=== PATIENT | male | born 1975 | race Caucasian/White ===

== ENCOUNTER 2016-08-04 15:18 | Inpatient (IN) ==
[2016-08-04] MEDS ORDERED: *HR* HYDROmorphone (PF) 1 MG/ML SYRINGE IVP ONE ×3 (15:27→17:13)
[2016-08-04] MEDS ORDERED: Ondansetron 4 MG/2 ML VIAL IVP ONE (15:28)
--- NOTE | 2016-08-04 15:38 | Emergency Department Note ---
Disposition Clinical Impression: Open fracture Fracture of toe Qualifiers: Encounter type: initial encounter Toe: unspecified toe Fracture type: open Fracture alignment: displaced Laterality: left Qualified Code(s): S92.912B - Unspecified fracture of left toe(s), initial encounter for open fracture Traumatic amputation toe Qualifiers: Encounter type: initial encounter Laterality: left Qualified Code(s): S98.132A - Complete traumatic amputation of one left lesser toe, initial encounter Disposition: Admitted As Inpatient Condition: Good Time of Disposition: 16:45 General Adult HPI - General Chief complaint: ED Extremity Injury, Lower Stated complaint: amputated toe Time Seen by Provider: 08/04/16 15:27 Source: patient, EMS Limitations: no limitations Nursing Notes Reviewed: Yes Vital Signs Reviewed: Yes - History of Present Illness HPI Narrative: Patient was mowing the grass and slipped. The privacy specialist came back and cut through his tennis shoe of his left foot. This indicated his second digit of his left foot. Also lacerated his great toe on his left foot. EMS was called they placed the toe in cold saline wrapped in 4 x 4's. Patient complains of pain to this area. There is no radiation. Bleeding is controlled. Pain Scale: 10 - Related Data Home Medications Medication Instructions Recorded Confirmed ALPRAZolam [Xanax 0.5 MG Tablet] 0.5 mg PO QAM 06/30/15 08/04/16 Amitriptyline [Elavil] 75 mg PO HS 08/04/16 08/04/16 Dextroamphetamine/Amphetamine 10 mg PO 0900,1200 08/04/16 08/04/16 [Dextroamp-Amphetamin 10 mg Tab] Divalproex (12 HR) [Depakote (12 250 mg PO BID 08/04/16 08/04/16 HR)] Melatonin 3 mg PO HS PRN 08/04/16 08/04/16 Omeprazole [PriLOSEC] 20 mg PO BIDAC 08/04/16 08/04/16 Oxycodone HCl/Acetaminophen 1 each PO Q8H PRN 08/04/16 08/04/16 [Percocet 10-325 mg Tablet] SUMAtriptan Succinate [Imitrex] 100 mg PO DAILY PRN 08/04/16 08/04/16 levETIRAcetam [Levetiracetam] 1,000 mg PO BID 08/04/16 08/04/16 Allergies Allergy/AdvReac Type Severity Reaction Status Date / Time Penicillins [PCN] Allergy Rash Verified 03/25/16 17:54 venom-honey bee Allergy See Verified 03/25/16 17:54 [bee venom (honey bee)] Comments All systems ED: reviewed and negative except as stated. Constitutional: Denies: fever, chills ENT ED: Denies: congestion Cardiovascular: Denies: chest pain, palpitations, syncope Respiratory: Denies: cough, dyspnea Gastrointestinal: Denies: abdominal pain, nausea, vomiting Genitourinary: Denies: urgency, dysuria, frequency Musculoskeletal: Reports: other (left foot second tow amputation, laceration to great toe on left). Denies: back pain, neck pain Integumentary: Denies: rash, abrasion Neurological: Denies: headache, weakness Past Medical History - Past Medical History Medical history: Reports: migraine, seizures, other Surgical history: Reports: other ("brain surgery") Psychiatric history: Reports: no psych history - Social History Smoking Status: Current every day smoker Smokeless Tobacco Status: No Alcohol use: Reports: rarely Drug use: Reports: none Physical Exam - General Limitations: no limitations General appearance: alert, in no apparent distress - Head Head exam: atraumatic, normocephalic - Eye Eye exam: Present: normal appearance, PERRL, EOMI - ENT ENT exam: normal exam, normal oropharynx, mucous membranes moist - Neck Neck exam: Present: normal inspection, full ROM - Chest Chest inspection: Present: normal inspection, symmetric chest wall rise - Respiratory Respiratory exam: Present: normal lung sounds bilaterally. Absent: respiratory distress - Cardiovascular Cardiovascular exam: Present: regular rate, normal rhythm, normal heart sounds - Abdominal Exam Abdominal exam: Present: soft, Non-Tender, normal bowel sounds - Expanded Upper Extremity Exam Shoulder exam: Present: normal inspection, full ROM Arm exam: Present: normal inspection, full ROM Elbow exam: Present: normal inspection, full ROM Forearm/Wrist exam: Present: normal inspection, full ROM Hand exam: Present: normal inspection, full ROM Vascular exam: Normal: capillary refill, radial pulse - Expanded Lower Extremity Exam Hip/Pelvis exam: Present: normal inspection, full ROM Upper leg exam: Present: normal inspection, full ROM Knee exam: Present: normal inspection, full ROM Lower leg exam: Present: normal inspection, full ROM Ankle exam: Present: normal inspection, full ROM Foot/toe exam: Present: laceration, amputation 1 - amputated 2 - laceration Neurovascular/Tendon exam: Absent: motor deficit, sensory deficit, tendon deficit - Back Exam Back exam: Present: normal inspection, full ROM. Absent: tenderness, CVA tenderness (R), CVA tenderness (L) - Neurological Exam Neurological exam: Present: alert, oriented X3 - Psychiatric Psychiatric exam: Present: normal affect, normal mood - Skin Skin exam: Present: warm, dry, intact, normal color. Absent: rash, cyanosis Course Course Narrative: Patient presenting to the emergency department with EMS. Patient was mowing the grass around 1450 today whenever he ran over his left foot. He had on tennis shoes. He slipped and the lumbar came back and ran over his left foot. This amputated the second digit on his left foot. He also cut into the first digit. He then called EMS. The toe is brought in full saline wrapped in a 4 x 4. We placed it on ice. There is bone exposed and the bleeding is controlled. There is no bone exposed to his first digit however there is a laceration . Both on the left foot. He is not up-to-date on his tetanus shot. We have spoken to Dr. Ramirez and Dr. Ramirez has seen the patient. His been offered for the patient to be transferred to [place] for possible reimplantation. The patient has chosen to stay at this facility for debridement. We will place him on Ancef as well as Cipro for Pseudomonas coverage. We will manage patient' s pain while he is here. We are cleaning the wound and covering with a moist dressing. We will admit patient to the hospital. His last meal was around noon today. - Consultations Consultation #1: Spoke with Dr. Ramirez on the phone. He came to bedside to speak with patient. Options for the patient are to have debridement surgery enclosure here or possible transfer to [place] or [facility] for possible reimplantation. Time: 15:35 Consultation #2: Dr Sher accepted Pt in stable condition. Time: 16:22 Vital Signs Temperature 98.4 F 08/04/16 15:20 Pulse Rate 109 08/04/16 15:20 Respiratory Rate 18 08/04/16 15:20 Blood Pressure 141/102 08/04/16 15:20 O2 Sat by Pulse Oximetry 97 08/04/16 15:20 Temperature 98.4 F 08/04/16 18:01 Pulse Rate 92 08/04/16 18:01 Respiratory Rate 14 08/04/16 18:01 Blood Pressure 129/75 08/04/16 18:01 O2 Sat by Pulse Oximetry 99 08/04/16 18:01 Oxygen Delivery Oxygen Delivery Room Air Medical Decision Making - Lab Data Result diagrams: 08/04/16 16:28 08/04/16 16:28 Lab Results 08/04/16 08/04/16 08/04/16 Range/Units 16:28 16:28 16:28 WBC (4.3-11.1) K/mcL RBC (4.19-5.50) M/mcL Hgb (12.9-16.9) g/dL Hct (37.5-50.1) % MCV (83.0-100.0) fL MCH (28.0-33.3) pg MCHC (31.6-35.5) g/dL RDW (11.5-14.5) % Plt Count (140-400) K/mcL MPV (9.4-12.4) fL Immature Gran % (0-4) % Seg Neutrophils % % Lymphocytes % % Monocytes % % Eosinophils % % Basophils % % Neutrophils # (1.6-8.9) K/mcL Lymphocytes # (0.6-4.6) K/mcL Monocytes # (0.0-1.3) K/mcL Eosinophils # (0.0-0.6) K/mcL Basophils # (0.0-0.2) K/mcL PT 13.0 H (9.4-12.1) Seconds INR 1.2 Sodium 139 (136-145) mEq/L Potassium 4.7 H (3.5-4.5) mEq/L Chloride 105 (98-109) mEq/L Carbon Dioxide 25 (19-29) mEq/L BUN 11 (8-26) mg/dL Creatinine 1.02 (0.72-1.25) mg/dL Est GFR ( Amer) > 60 (> 60) Est GFR (Non-Af Amer) > 60 (> 60) BUN/Creatinine Ratio 11 (6-26) Glucose 93 (70-99) mg/dL Calculated Osmolality 287 (280-300) Calcium 9.3 (8.6-10.8) mg/dL Blood Type A POSITIVE Antibody Screen NEGATIVE 08/04/16 Range/Units 16:28 WBC 16.3 H (4.3-11.1) K/mcL RBC 5.01 (4.19-5.50) M/mcL Hgb 15.2 (12.9-16.9) g/dL Hct 44.0 (37.5-50.1) % MCV 87.8 (83.0-100.0) fL MCH 30.3 (28.0-33.3) pg MCHC 34.5 (31.6-35.5) g/dL RDW 13.1 (11.5-14.5) % Plt Count 282 (140-400) K/mcL MPV 9.9 (9.4-12.4) fL Immature Gran % 0.4 (0-4) % Seg Neutrophils % 69.8 % Lymphocytes % 20.2 % Monocytes % 7.0 % Eosinophils % 2.0 % Basophils % 0.6 % Neutrophils # 11.4 H (1.6-8.9) K/mcL Lymphocytes # 3.3 (0.6-4.6) K/mcL Monocytes # 1.1 (0.0-1.3) K/mcL Eosinophils # 0.3 (0.0-0.6) K/mcL Basophils # 0.1 (0.0-0.2) K/mcL PT (9.4-12.1) Seconds INR Sodium (136-145) mEq/L Potassium (3.5-4.5) mEq/L Chloride (98-109) mEq/L Carbon Dioxide (19-29) mEq/L BUN (8-26) mg/dL Creatinine (0.72-1.25) mg/dL Est GFR ( Amer) (> 60) Est GFR (Non-Af Amer) (> 60) BUN/Creatinine Ratio (6-26) Glucose (70-99) mg/dL Calculated Osmolality (280-300) Calcium (8.6-10.8) mg/dL Blood Type Antibody Screen Attestation Statement - Attestation Attestation: I, Kwaku Dumont, examined this patient and my medical decision-making was reviewed with the SLIP MAKER/PA/Advanced Practice Nurse/Resident Physician. I agree with the documented findings, disposition and treatment plan as described except to the extent set forth below. 40-year-old male presents with amputation of the left second toe. Patient was mowing the lawn when he slipped and fell backwards. The lawnmower cut into the patient's shoe and foot. Amputation of the second toe of the left foot occurred at the interphalangeal joint. Today she was counseled after the patient's initial arrival who recommended either debridement of the toe versus transfer to [facility] for possible reattachment. Risks and benefits were discussed thoroughly with the patient. Patient chose to remain at [facility] to have debridement of the amputated toe with closure. Podiatry evaluated the patient at bedside. Patient will be admitted to the hospital for further care and evaluation.
[2016-08-04] MEDS ORDERED: Tdap (Boostrix) Vaccine 0.5 ML SYRINGE IM ONE (15:40)
[2016-08-04] MEDS ORDERED: ceFAZolin 1,000 MG in D5% in Water (Mini-Bag+) 100 ML IVPB ONE (15:54)
[2016-08-04 16:37] LABS: Basophils # 0.1 K/mcL (0.0-0.2); Basophils % 0.6 %; Eosinophils # 0.3 K/mcL (0.0-0.6); Hemoglobin 15.2 g/dL (12.9-16.9); Immature Granulocytes % 0.4 % (0-4); Lymphocytes # 3.3 K/mcL (0.6-4.6); Lymphocytes % 20.2 %; Mean Corpuscular HGB Conc 34.5 g/dL (31.6-35.5); Mean Corpuscular Hemoglobin 30.3 pg (28.0-33.3); Mean Corpuscular Volume 87.8 fL (83.0-100.0); Mean Platelet Volume 9.9 fL (9.4-12.4); Monocytes # 1.1 K/mcL (0.0-1.3); Neutrophils # 11.4 K/mcL (1.6-8.9); Platelet Count 282 K/mcL (140-400); Red Blood Count 5.01 M/mcL (4.19-5.50); Red Cell Distribution Width 13.1 % (11.5-14.5); Segmented Neutrophils % 69.8 %
[2016-08-04 16:42] LABS: INR 1.2
[2016-08-04 16:51] LABS: BUN/Creatinine Ratio 11 (6-26); Blood Urea Nitrogen 11 mg/dL (8-26); Calcium 9.3 mg/dL (8.6-10.8); Carbon Dioxide 25 mEq/L (19-29); Chloride 105 mEq/L (98-109); Glucose 93 mg/dL (70-99); Osmolality,Calculated 287 (280-300); Potassium 4.7 mEq/L (3.5-4.5); Sodium 139 mEq/L (136-145); eGFR For African Americans > 60 (> 60); eGFR For Non-African Americans > 60 (> 60)
[2016-08-04] MEDS ORDERED: Naloxone 0.4 MG/ML INJ IVP PRN (16:57)
[2016-08-04] MEDS ORDERED: ALPRAZolam 0.5 MG TABLET PO PRN (17:17)
--- NOTE | 2016-08-04 17:21 | Internal Med History&Physical ---
<Lam,Cortney J - Last Filed: 08/04/16 18:15> Date of Encounter: 08/04/16 Time of Encounter: 17:19 Assessment and Plan (1) Traumatic amputation toe Current visit: Yes Status: Acute on day of admission secondary to loan expeditor accident. Left foot x-ray with 2nd digit amputation. Flushed at bedside per Podiatry. Received tetanus in ED. Plan for surgical debridement in am. Cont IV ancef, pain control, NPO after midnight. Dr. Ramirez following Qualifiers: Encounter type: initial encounter Laterality: left Qualified Code(s): S98.132A - Complete traumatic amputation of one left lesser toe, initial encounter (2) Open fracture Current visit: Yes Status: Acute left foot x-ray with 1st digit fracture. Defer management to podiatry. (3) Leukocytosis Current visit: Yes Status: Acute WBC 16K, suspect reactive. CXR non-acute. Cont IV ancef as noted above. UA, blood cx pending Qualifiers: Leukocytosis type: other Qualified Code(s): D72.828 - Other elevated white blood cell count (4) History of brain surgery Current visit: Yes Status: Acute per hx with residual left side facial droop. Cont seizure prophylaxis. (5) Anxiety Current visit: Yes Status: Acute per hx. Sx's controlled with home Klonopin (6) DVT prophylaxis Current visit: Yes Status: Acute SCDs Internal Medicine - H&P: HPI Chief complaint: I cut my toes off mowing grass Admitted From: Home Plans for Post Hospital Care: Home History of present illness: Mr. Recinos is a 40 year old male with PMH previous brain surgeries and anxiety who presented to [facility] on 08/04/2016 after having 2 toes amputated while mowing grass. He was placed in observation status with surgical debridement planned in the morning. Information obtained from chart review and patient report. Patient says he was mowing grass when he tripped and fell. The mower ran over foot. On my exam, he complains of left foot pain, pain is sharp at times, radiates to entire left foot. Nothing makes worse and pain medicine relieves Past Med Surg Social Fam HX - Past Medical History Medical history: migraine, seizures, other Psychiatric history: no psych history - Past Surgical History Surgical History: other ("brain surgery") - Social History Smoking Status: Current every day smoker Smokeless Tobacco Status: No Alcohol use: rarely Drug use: none Internal Medicine - H&P: Meds ALPRAZolam [Xanax 0.5 MG Tablet] 0.5 mg PO QAM 06/30/15 [History] Amitriptyline [Elavil] 75 mg PO HS 08/04/16 [History] Dextroamphetamine/Amphetamine [Dextroamp-Amphetamin 10 mg Tab] 10 mg PO 0900, 1200 08/04/16 [History] Divalproex (12 HR) [Depakote (12 HR)] 250 mg PO BID 08/04/16 [History] Melatonin 3 mg PO HS PRN 08/04/16 [History] Omeprazole [PriLOSEC] 20 mg PO BIDAC 08/04/16 [History] Oxycodone HCl/Acetaminophen [Percocet 10-325 mg Tablet] 1 each PO Q8H PRN [History] SUMAtriptan Succinate [Imitrex] 100 mg PO DAILY PRN 08/04/16 [History] levETIRAcetam [Levetiracetam] 1,000 mg PO BID 08/04/16 [History] Allergies Penicillins [PCN] Allergy (Verified 03/25/16 17:54) Rash venom-honey bee [bee venom (honey bee)] Allergy (Verified 03/25/16 17:54) See Comments "i have swelled up and i think i had a seziure as a kid" All Systems PM: A 10-system review of systems was performed and is negative for pertinent findings except as documented above in the HPI. - Constitutional Constitutional: no chills, no fever(s), no night sweats - EENT Eyes: no change in vision, no discharge, no pain, no photophobia Ears: no ear discharge, no ear pain, no tinnitus Nose, mouth and throat: no dysphagia, no nasal discharge, no neck pain, no sore throat - Cardiovascular Cardiovascular ROS IM: no chest pain, no diaphoresis, no dyspnea, no lightheadedness, no palpitations, no syncope - Respiratory Respiratory: no cough, no dyspnea, no wheezing, no excessive phlegm production - Gastrointestinal Gastrointestinal: no abdominal pain, no diarrhea, no hematemesis, no hematochezia, no melena, no nausea, no vomiting - Musculoskeletal Musculoskeletal ROS IM: no numbness, no tingling - Integumentary Integumentary IM: no rash, no unusual bruising - Neurological Neurological ROS: abnormal speech, no confusion, no convulsions, no focal weakness, no numbness, no tingling, no tremor(s) - Hematologic/Lymphatic Hematologic/Lymphatic: no easy bruising - Constitutional Vitals: Temp Pulse Resp BP Pulse Ox 98.4 F 92 16 130/90 99 08/04/16 15:20 08/04/16 16:58 08/04/16 16:58 08/04/16 16:58 08/04/16 16:58 General appearance: Present: A&O X 3, no acute distress - Head Head exam: Present: atraumatic, normocephalic - Eye Eye exam: Present: PERRL, conjuntiva pink, sclera anicteric Pupils: Present: PERRL - Neck Neck exam general surgery: Present: supple, trachea midline. Absent: lymphadenopathy - Respiratory Respiratory exam: Present: CTAB. Absent: accessory muscle use, rales, rhonchi, wheezes - Cardiovascular Cardiovascular exam: Present: RRR, +S1, +S2. Absent: diastolic murmur, gallop, rubs, systolic murmur - GI/Abdominal GI/Abdominal exam: Present: normal bowel sounds, soft, no peritoneal signs. Absent: distended, tenderness - Extremities Exam Extremities exam: Present: warm, radial pulses palpable and symetrical. Absent : calf tenderness, cyanotic, pedal edema - Neurological Exam Neurological exam: Present: CN II-XII intact, oriented X3, no focal deficits, facial droop, speech deficit. Absent: pronater drift - Skin Skin exam: Present: dry, intact Internal Med - H&P Results - Labs CBC & Chem 7: 08/04/16 16:28 08/04/16 16:28 <Arcadio Sher - Last Filed: 08/04/16 18:25> Date of Encounter: 08/04/16 Time of Encounter: 18:23 Internal Medicine - H&P: HPI History of present illness: Mr. Recinos is a 40 year old male All Systems PM: A 10-system review of systems was performed and is negative for pertinent findings except as documented above in the HPI. - Constitutional Vitals: Temp Pulse Resp BP Pulse Ox 98.4 F 92 14 129/75 99 08/04/16 18:01 08/04/16 18:01 08/04/16 18:01 08/04/16 18:01 08/04/16 18:01 Internal Med - H&P Results - Labs CBC & Chem 7: 08/04/16 16:28 08/04/16 16:28 - Attending Attestation I examined this patient and my medical decision-making was reviewed with the nurse practitioner. I agree with the documented history of present illness, review of systems, past medical, surgical social and family histories and examination findings, disposition and treatment plan as described above except to any changes set forth below. 40-year-old male patient with history of seizures, brain bleed with traumatic amputation of the left second toe and part of left first toe with fracture of the first digit. Evaluated by podiatry and recommended debridement which is planned for tomorrow. Continue patient's home medications. 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 Monitor vital signs. IV antibiotics.
[2016-08-04] MEDS ORDERED: *HR* LORazepam 2 MG/ML VIAL IVP ONE (18:22)
[2016-08-04] MEDS: *HR* OxyCODONE Immed Rel 5 MG TABLET PO PRN (19:16)
[2016-08-04] MEDS: Nicotine 14 MG PATCH.TD24 TD SCH (20:26)
[2016-08-04] MEDS: Divalproex (12 HR) 250 MG TABLET PO SCH (20:27)
[2016-08-04] MEDS: levETIRAcetam 250 MG TABLET PO SCH (20:27)
[2016-08-04 21:05] LABS: Bilirubin,Urine Negative (Negative); Blood,Urine Negative (Negative); Clarity,Urine Clear (Clear); Color,Urine Yellow (Yellow); Glucose,Urine (UA) Normal (Normal); Ketones,Urine Negative (Negative); Leukocyte Esterase,Urine Negative (Negative); Nitrite,Urine Negative (Negative); PH,Urine 6.5 pH Units (5.0-8.0); Protein,Urine Negative (Neg-Trace); Specific Gravity,Urine 1.014 (1.010-1.025); Urobilinogen,Urine Normal (Normal)
[2016-08-04] MEDS: *HR* HYDROmorphone (PF) 1 MG/ML SYRINGE IVP PRN (22:18)
[2016-08-04] MEDS: ceFAZolin 1,000 MG in D5% in Water (Mini-Bag+) 100 ML IVPB SCH (23:46)
[2016-08-05] MEDS ORDERED: 0.9 % Sodium Chloride 1,000 ML IVC SCH (00:01)
[2016-08-05] MEDS ORDERED: Melatonin 3 MG TABLET PO ONE ×2 (00:44→20:33)
[2016-08-05] MEDS: *HR* HYDROmorphone (PF) 1 MG/ML SYRINGE IVP PRN ×4 (02:51→21:32)
[2016-08-05 03:37] LABS: Basophils # 0.1 K/mcL (0.0-0.2); Basophils % 0.6 %; Eosinophils # 0.6 K/mcL (0.0-0.6); Hemoglobin 14.4 g/dL (12.9-16.9); Immature Granulocytes % 0.3 % (0-4); Lymphocytes # 4.2 K/mcL (0.6-4.6); Lymphocytes % 28.9 %; Mean Corpuscular HGB Conc 35.1 g/dL (31.6-35.5); Mean Corpuscular Hemoglobin 30.7 pg (28.0-33.3); Mean Corpuscular Volume 87.4 fL (83.0-100.0); Mean Platelet Volume 9.7 fL (9.4-12.4); Monocytes # 1.5 K/mcL (0.0-1.3); Monocytes % 10.5 %; Platelet Count 280 K/mcL (140-400); Red Blood Count 4.69 M/mcL (4.19-5.50); Segmented Neutrophils % 55.7 %
[2016-08-05 03:53] LABS: Alanine Aminotransferase 16 Units/L (0-55); Albumin 3.3 g/dL (3.5-5.0); Albumin/Globulin Ratio 0.8 (1.1-2.2); Alkaline Phosphatase 41 Units/L (38-126); Aspartate Amino Transferase 16 Units/L (5-34); BUN/Creatinine Ratio 11 (6-26); Bilirubin,Total 0.2 mg/dL (0.2-1.2); Blood Urea Nitrogen 10 mg/dL (8-26); Calcium 8.7 mg/dL (8.6-10.8); Carbon Dioxide 24 mEq/L (19-29); Chloride 104 mEq/L (98-109); Globulin 3.9 g/dL (2.4-3.5); Glucose 103 mg/dL (70-99); Osmolality,Calculated 287 (280-300); Sodium 139 mEq/L (136-145); Total Protein 7.2 g/dL (6.0-8.3); eGFR For African Americans > 60 (> 60); eGFR For Non-African Americans > 60 (> 60)
[2016-08-05] MEDS: *HR* OxyCODONE Immed Rel 5 MG TABLET PO PRN ×3 (04:36→20:08)
[2016-08-05] MEDS: Nicotine 14 MG PATCH.TD24 TD SCH ×2 (07:33→17:54)
[2016-08-05] MEDS: Divalproex (12 HR) 250 MG TABLET PO SCH ×2 (07:59→20:09)
[2016-08-05] MEDS: ceFAZolin 1,000 MG in D5% in Water (Mini-Bag+) 100 ML IVPB SCH ×2 (08:00→17:21)
[2016-08-05] MEDS: levETIRAcetam 250 MG TABLET PO SCH ×2 (08:00→20:09)
--- NOTE | 2016-08-05 08:08 | Anesthesia Evaluation PreOp ---
Date of Encounter: 08/05/16 Time of Encounter: 08:05 - Past History Planned Operation: Amputation Left 2nd Toe Cardiac History: Denies any Significant Hx Pulmonary History: Smoker GUEST SERVICES AGENT History: Seizures, Other (H/O traumatic brain injury, migraine VIEYRA's) Other Medical History: Other (PTSD) Anesthesia History: No Prior Anesthetic Complications, Past Anesthesia Alcohol Use: rarely Drug use: none Medications and Allergies ALPRAZolam [Xanax 0.5 MG Tablet] 0.5 mg PO QAM 06/30/15 [History] Amitriptyline [Elavil] 75 mg PO HS 08/04/16 [History] Dextroamphetamine/Amphetamine [Dextroamp-Amphetamin 10 mg Tab] 10 mg PO 0900, 1200 08/04/16 [History] Divalproex (12 HR) [Depakote (12 HR)] 250 mg PO BID 08/04/16 [History] Melatonin 3 mg PO HS PRN 08/04/16 [History] Omeprazole [PriLOSEC] 20 mg PO BIDAC 08/04/16 [History] Oxycodone HCl/Acetaminophen [Percocet 10-325 mg Tablet] 1 each PO Q8H PRN [History] SUMAtriptan Succinate [Imitrex] 100 mg PO DAILY PRN 08/04/16 [History] levETIRAcetam [Levetiracetam] 1,000 mg PO BID 08/04/16 [History] Allergies Penicillins [PCN] Allergy (Verified 03/25/16 17:54) Rash venom-honey bee [bee venom (honey bee)] Allergy (Verified 03/25/16 17:54) See Comments "i have swelled up and i think i had a seziure as a kid" - Meds/Allergy Pre-op Review Medications Reviewed: Yes Allergies Reviewed: Yes Beta Blockers on Current Med List: No Anesthesia Results - Labs 08/05/16 03:24 08/05/16 03:24 - Imaging EKG: report reviewed (07/03/2015 ST) Anesthesia Exam Vital Signs/O2 Sat, Most Current Temp Pulse Resp BP Pulse Ox 98.5 F 81 18 117/68 98 08/05/16 07:12 08/05/16 07:12 08/05/16 07:12 08/05/16 07:12 08/05/16 07:12 Height: 5'10'' Weight: 160 lbs NPO (# of Hours): 8 Pain Scale: 0 Pain Scale Used: Numeric (1 - 10) - HEENT Pupil (Motor): EOMI Mallampati: II Teeth: Edentulous Oral Opening: Greater than 3 - GUEST SERVICES AGENT LOC: Oriented GUEST SERVICES AGENT Motor: Normal LUE, Normal LLE, Normal Face, Deficit RUE, Deficit RLE GUEST SERVICES AGENT Sensory: Normal: RUE, LUE, RLE, LLE, Face - Cardiac Rhythm: Regular Murmur: None - Pulmonary Breath Sounds: bilateral Clear Respiratory Effort: Symmetrical Anesthesia Assess/Plan ASA Score: 3 Modified Manuela Scale for Level of Consciousness: Cooperative, oriented, and tranquil Anesthetic Plan: MAC Monitoring Plan: Standard Monitors
[2016-08-05] MEDS ORDERED: Propofol 500 MG/50 ML INFUS..BTL ONE (08:26)
[2016-08-05] MEDS ORDERED: Lidocaine -MPF 2% 2 ML VIAL ONE (08:27)
[2016-08-05] MEDS ORDERED: *HR* Midazolam HCl 2 MG/2 ML VIAL ONE (08:48)
[2016-08-05] MEDS ORDERED: *HR* FentaNYL (PF) 100 MCG/2 ML VIAL ONE (08:48)
[2016-08-05] MEDS ORDERED: Lacri-Lube 3.5 GM TUBE ONE (09:09)
[2016-08-05] MEDS ORDERED: ALPRAZolam 0.5 MG TABLET PO PRN (10:27)
[2016-08-05] MEDS ORDERED: Naloxone 0.4 MG/ML INJ IVP PRN (10:27)
[2016-08-05] MEDS ORDERED: SUMAtriptan succinate 50 MG TABLET PO PRN (10:27)
[2016-08-05] MEDS: (Dextroamphetamine/Amphetamine [Dextroamp-Amphetamin PO SCH (12:21)
[2016-08-05] MEDS ORDERED: Nitroglycerin 0.4 MG TAB.SUBL SL PRN (17:22)
--- NOTE | 2016-08-05 17:26 | Internal Med Progress Note ---
Date of Encounter: 08/05/16 Time of Encounter: 17:24 - Assessment and plan (1) Traumatic amputation toe Current Visit: Yes Status: Acute Assessment and plan: underwent amputation of the left 2nd toe continue ancef may discharge in the morning when pain is better controlled Qualifiers: Encounter type: initial encounter Laterality: left Qualified Code(s): S98.132A - Complete traumatic amputation of one left lesser toe, initial encounter (2) Chest pain Current Visit: Yes Status: Acute Assessment and plan: check EKG troponins lipid panel , ASA morphine lipitor, discribes the pain more as pleuritic at times Qualifiers: Chest pain type: other chest pain Qualified Code(s): R07.89 - Other chest pain; R07.8 - Other chest pain (3) Fracture of toe Current Visit: Yes Status: Acute Qualifiers: Encounter type: initial encounter Toe: unspecified toe Fracture type: open Fracture alignment: displaced Laterality: left Qualified Code(s): S92.912B - Unspecified fracture of left toe(s), initial encounter for open fracture (4) Anxiety Current Visit: Yes Status: Acute Assessment and plan: might be related to CP (5) History of brain surgery Current Visit: Yes Status: Acute Assessment and plan: continue seizure prophylaxis with Keppra and divalproex (6) Tobacco abuse Current Visit: Yes Status: Acute Assessment and plan: smoking cessation counseling, nicotine patch - Subjective Interval history: complains of pain over the left foot 09/03, had CP earlier today over the left side, pleuritic and dull at times, no SOB, no fever, no abdominal pain - Constitutional Vitals: Temp Pulse Resp BP Pulse Ox 98.1 F 77 16 109/71 98 08/05/16 11:01 08/05/16 11:01 08/05/16 11:01 08/05/16 11:01 08/05/16 11:01 General appearance: Present: A&O X 3, no acute distress - Head Head exam: Present: atraumatic, normocephalic - Eye Eye exam: Present: PERRL, conjuntiva pink, sclera anicteric Pupils: Present: PERRL - Neck Neck exam general surgery: Present: supple, trachea midline. Absent: lymphadenopathy - Respiratory Respiratory exam: Present: CTAB. Absent: accessory muscle use, rales, rhonchi, wheezes - Cardiovascular Cardiovascular exam: Present: RRR, +S1, +S2. Absent: diastolic murmur, gallop, rubs, systolic murmur - GI/Abdominal GI/Abdominal exam: Present: normal bowel sounds, soft, no peritoneal signs. Absent: distended, tenderness - Extremities Exam Extremities exam: Present: warm, radial pulses palpable and symetrical. Absent : calf tenderness, cyanotic, pedal edema - Neurological Exam Neurological exam: Present: CN II-XII intact, oriented X3, no focal deficits, facial droop (left). Absent: pronater drift, speech deficit - Skin Skin exam: Present: dry. Absent: intact (left foot tow amputation wound covered by dressing) Internal Medicine: Result - Labs CBC & Chem 7: 08/05/16 03:24 08/05/16 03:24 Labs: Short CBC 08/05/16 Range/Units 03:24 WBC 14.4 H (4.3-11.1) K/mcL Hgb 14.4 (12.9-16.9) g/dL Hct 41.0 (37.5-50.1) % Plt Count 280 (140-400) K/mcL Neutrophils # 8.0 (1.6-8.9) K/mcL BMP 08/05/16 03:24 Sodium 139 Potassium 4.0 Chloride 104 Carbon Dioxide 24 BUN 10 Creatinine 0.95 Glucose 103 H Calcium 8.7 Liver Function 08/05/16 Range/Units 03:24 Total Bilirubin 0.2 (0.2-1.2) mg/dL AST 16 (5-34) Units/L ALT 16 (0-55) Units/L Alkaline Phosphatase 41 (38-126) Units/L Albumin 3.3 L (3.5-5.0) g/dL Urine 08/04/16 Range/Units 20:55 Urine Color Yellow (Yellow) Urine Clarity Clear (Clear) Urine pH 6.5 (5.0-8.0) pH Units Ur Specific [place] 1.014 (1.010-1.025) Urine Protein Negative (Neg-Trace) mg/dL Urine Glucose (UA) Normal (Normal) mg/dL - ABG Interpretation ABG results: PT/INR, D-dimer PT 13.0 Seconds (9.4-12.1) H 08/04/16 16:28 - Impressions Impressions Foot X-Ray 08/05/16 10:27 IMPRESSION: Expected postsurgical changes from 1st and 2nd digit amputation. D/ / Shannan Núñez MD / Shannan Núñez MD Interpreting Provider: Shannan Núñez MD - VTE Documentation of Mechanical Device: Intermittent pneumatic compression device Consult Discharge Plan - Plan Referrals: NO,PCP [Primary Care Provider] -
[2016-08-05] MEDS ORDERED: *HR* LORazepam 0.5 MG TABLET PO PRN (17:32)
[2016-08-05] MEDS: 0.9 % Sodium Chloride 1,000 ML IVC SCH (17:33)
[2016-08-05] MEDS: Aspirin Enteric Coated 325 MG Tablet PO SCH (17:53)
--- NOTE | 2016-08-05 18:04 | Orthopedic Operative Note ---
Date of procedure: 08/05/16 Pre-op diagnosis: #1 Open fracture toe #1. #2 traumatic amputation toe #2 Post-op diagnosis: same Procedure: 08/05/16 18:03 #1 Debridement of all nonviable tissue and bone open fracture to #1 left foot #2 Adjacent tissue transfer toe #1 left foot #3 debridement of all nonviable tissue and bone of open fracture toe #2 left foot with partial digital amputation/repair of traumatic amputation. Implants: None Complications: None Anesthesia: MAC Local Anesthetics: 0.25% Sensorcaine HCL SubQ (cc) Surgeon: Kwaku Ramirez Estimated blood loss (cc): 10 Tourniquet Time (Minutes): 0 Specimen: Tissue and bone toes #1 #2 left foot Condition: stable Disposition: floor Procedure in Detail: 08/05/16 18:05 Details in summary of procedure: Patient was brought to the surgical suite and a sign in procedure was performed. Patient was then transferred to the surgical table and positioned properly safely securely. The left foot was elevated on a foam block. Anesthetic timeout was taken. The patient was then sedated the dressing was then removed and we visualized partial traumatic amputation of the distal half of the second toe left foot and exposure of open fracture with clot and bone dorsal aspect of the distal left great toe. The left foot was then prepped and cleansed with alcohol and saline removing all blood products from the foot and dorsal aspects of the base of the toes, # [id number]. A modified Neal block was carried out at the level of the distal first and second metatarsals to create profound anesthesia with local anesthetic. No complications. The left foot was then prepped and draped in usual sterile manner. Clinical photographs were taken. Surgical timeout was taken. Inspection of the second toe revealed exposure of the middle phalanx. We appreciated more soft tissue loss plantarly than we did dorsally. Debris was irrigated both incisions were irrigated with saline and all Betadine was removed from the surgical field. At that juncture planned incision was then begun on the medial aspect of the base of the second toe at the junction of the medial plantar skin was brought distally and then transversely just proximal to the long traumatic line of amputation and then to the lateral aspect of the junction lateral plantar skin and proximally to the base of the toe a transverse incision was begun medially and then brought plantarly just proximal to the line of traumatic amputation meeting the lateral dorsal incision sharp dissection was continued down to the proximal interphalangeal joint with the remainder of the middle phalanx was extirpated. The distal aspect of the proximal phalanx was exposed, we did not have enough soft tissue to cover the remaining proximal phalanx. Therefore a proximally one half of the distal phalanx was divided from dorsal to plantar using command power saw after freeing the soft tissue at the level of the periosteum with a #15 scalpel blade dorsally and plantarly. After a clean osteotomy was performed and was flushed with copious amounts sterile saline finding no bone chips were debris the extensor and flexor tendons were then reanastomosed over the remaining proximal phalanx the skin was repaired with 4-0 Prolene. Attention was then turned to the left great toe after gentle cleansing the dorsal aspect of the nail bed was found to be absent and the distal aspect of the distal tuft of the phalanx was exposed and protruding dorsally and a right angle to the long axis of the toe. The open fracture was then debrided of all bone fragments especially the distal tuft of the toe and the remaining fragment that was actually attached to the plantar soft tissue remaining distal portion of the distal phalanx was irregular and 8 command power saw was then used to create a smooth even surface of the remaining distal phalanx. This was performed well irrigating with sterile saline using adequate suction for visualization. The wound was flushed again with copious amounts sterile saline. The plantar flap was then mobilized but dogears were noted and a Humberto's triangle was performed on the medial distal and medial lateral aspect of the plantar flap. Concern for regrowth of the nail was addressed by removing the matrix with a #3 curet of the proximal dorsal aspect of the distal phalanx. Again the wound was flushed with copious amounts sterile saline and the plantar flap was then mobilized and the adjacent tissue transfer was then performed and this plantar flap was sutured with 40 and 3-0 Prolene. Prior to closure to both wounds they were sprayed with PRP. Both wounds were then dressed with Adaptic 4 x 4's and Kerlix. No tourniquet was used. At the close of the procedure Rebound time is less than 3 seconds on the dorsal and plantar flap of remaining disc second digit as well as the distal dorsal medial lateral aspect of the great toe complications encountered none patient tolerated the procedure well and was sent to the holding room in good condition with vital signs stable proximal with 10 mL of blood loss.
[2016-08-05] MEDS: Melatonin 3 MG TABLET PO PRN (20:12)
[2016-08-06] MEDS: ceFAZolin 1,000 MG in D5% in Water (Mini-Bag+) 100 ML IVPB SCH ×2 (00:22→07:44)
[2016-08-06] MEDS: *HR* HYDROmorphone (PF) 1 MG/ML SYRINGE IVP PRN ×4 (04:50→21:34)
[2016-08-06 05:24] LABS: Hemoglobin 13.9 g/dL (12.9-16.9); Mean Corpuscular HGB Conc 34.8 g/dL (31.6-35.5); Mean Corpuscular Hemoglobin 30.3 pg (28.0-33.3); Mean Corpuscular Volume 87.1 fL (83.0-100.0); Platelet Count 277 K/mcL (140-400); Red Blood Count 4.59 M/mcL (4.19-5.50); Red Cell Distribution Width 12.9 % (11.5-14.5)
[2016-08-06 05:44] LABS: BUN/Creatinine Ratio 10 (6-26); Blood Urea Nitrogen 8 mg/dL (8-26); Calcium 8.9 mg/dL (8.6-10.8); Carbon Dioxide 24 mEq/L (19-29); Chloride 105 mEq/L (98-109); Chol/HDL Ratio 6.5 (0-4.9); Cholesterol 170 mg/dL (< 200); Glucose 101 mg/dL (70-99); HDL Cholesterol 26 mg/dL (40-59); LDL Cholesterol,Calculated 93 mg/dL (0-99); Osmolality,Calculated 282 (280-300); Potassium 4.3 mEq/L (3.5-4.5); Sodium 137 mEq/L (136-145); Triglycerides 256 mg/dL (< 150); eGFR For African Americans > 60 (> 60); eGFR For Non-African Americans > 60 (> 60)
[2016-08-06] MEDS: Divalproex (12 HR) 250 MG TABLET PO SCH ×2 (07:42→21:29)
[2016-08-06] MEDS: Aspirin Enteric Coated 325 MG Tablet PO SCH (07:42)
[2016-08-06] MEDS: Nicotine 14 MG PATCH.TD24 TD SCH (07:43)
[2016-08-06] MEDS: *HR* OxyCODONE Immed Rel 5 MG TABLET PO PRN ×3 (07:43→23:34)
[2016-08-06] MEDS: levETIRAcetam 250 MG TABLET PO SCH ×2 (07:44→21:29)
[2016-08-06] MEDS: (Dextroamphetamine/Amphetamine [Dextroamp-Amphetamin PO SCH ×2 (07:56→09:36)
--- NOTE | 2016-08-06 09:24 | Internal Med Progress Note ---
Date of Encounter: 08/06/16 Time of Encounter: 09:21 - Assessment and plan (1) Traumatic amputation toe Current Visit: Yes Status: Acute Assessment and plan: underwent amputation of the left 2nd toe, possible surrounding acute cellulitis Discontinue ancef day 2, start IV doxycycline High risk for worsening infection Qualifiers: Encounter type: initial encounter Laterality: left Qualified Code(s): S98.132A - Complete traumatic amputation of one left lesser toe, initial encounter (2) Chest pain Current Visit: Yes Status: Acute Assessment and plan: Likely related to anxiety normal EKG troponins negative Qualifiers: Chest pain type: other chest pain Qualified Code(s): R07.89 - Other chest pain; R07.8 - Other chest pain (3) Fracture of toe Current Visit: Yes Status: Acute Qualifiers: Encounter type: initial encounter Toe: unspecified toe Fracture type: open Fracture alignment: displaced Laterality: left Qualified Code(s): S92.912B - Unspecified fracture of left toe(s), initial encounter for open fracture (4) Anxiety Current Visit: Yes Status: Acute Assessment and plan: might be related to CP (5) History of brain surgery Current Visit: Yes Status: Acute Assessment and plan: continue seizure prophylaxis with Keppra and divalproex (6) Tobacco abuse Current Visit: Yes Status: Acute Assessment and plan: smoking cessation counseling, nicotine patch - Subjective Interval history: complains of pain over the left foot 8/10, can not stand, had CP yesterday over the left side, pleuritic and dull at times, no CP today no SOB, no fever, no abdominal pain - Constitutional Vitals: Temp Pulse Resp BP Pulse Ox 98.2 F 100 18 128/71 93 08/06/16 06:39 08/06/16 06:39 08/06/16 06:39 08/06/16 06:39 08/06/16 06:39 General appearance: Present: A&O X 3, no acute distress - Head Head exam: Present: atraumatic, normocephalic - Eye Eye exam: Present: PERRL, conjuntiva pink, sclera anicteric Pupils: Present: PERRL - Neck Neck exam general surgery: Present: supple, trachea midline. Absent: lymphadenopathy - Respiratory Respiratory exam: Present: CTAB. Absent: accessory muscle use, rales, rhonchi, wheezes - Cardiovascular Cardiovascular exam: Present: RRR, +S1, +S2. Absent: diastolic murmur, gallop, rubs, systolic murmur - GI/Abdominal GI/Abdominal exam: Present: normal bowel sounds, soft, no peritoneal signs. Absent: distended, tenderness - Extremities Exam Extremities exam: Present: warm, radial pulses palpable and symetrical. Absent : calf tenderness, cyanotic, pedal edema - Neurological Exam Neurological exam: Present: CN II-XII intact, oriented X3, no focal deficits, facial droop (Left). Absent: pronater drift, speech deficit - Skin Skin exam: Present: dry. Absent: intact (Left second toe amputation wound surrounded by erythema) Internal Medicine: Result - Labs CBC & Chem 7: 08/06/16 04:43 08/06/16 04:43 Labs: Short CBC 08/06/16 Range/Units 04:43 WBC 15.0 H (4.3-11.1) K/mcL Hgb 13.9 (12.9-16.9) g/dL Hct 40.0 (37.5-50.1) % Plt Count 277 (140-400) K/mcL BMP 08/06/16 04:43 Sodium 137 Potassium 4.3 Chloride 105 Carbon Dioxide 24 BUN 8 Creatinine 0.82 Glucose 101 H Calcium 8.9 Cardiac Enzymes 08/05/16 Range/Units 22:19 Troponin I 0.01 (0-0.03) ng/mL - ABG Interpretation ABG results: PT/INR, D-dimer PT 13.0 Seconds (9.4-12.1) H 08/04/16 16:28 - VTE Documentation of Mechanical Device: Intermittent pneumatic compression device Consult Discharge Plan - Plan Referrals: NO,PCP [Primary Care Provider] -
[2016-08-06] MEDS: 0.9 % Sodium Chloride 1,000 ML IVC SCH ×2 (09:29→14:10)
[2016-08-06] MEDS: Doxycycline 100 MG in 0.9 % Sodium Chloride Mini Bag 100 ML IVPB SCH (19:36)
[2016-08-06] MEDS: Melatonin 3 MG TABLET PO PRN (21:35)
--- NOTE | 2016-08-06 23:54 | Podiatry Progress Note ---
Date of Encounter: 08/06/16 Time of Encounter: 13:54 - Assessment and Plan (1) Open fracture Current Visit: Yes Status: Acute Continue antibiotics, weightbear as tolerated but not excessively. Keep dressings intact after discharge. Follow up in one week. Use post op shoe when ambulating. Subjective Principal diagnosis: status post toe amputation Interval history: Patient relates no new concerns about his foot but rather is concerned about losing left leg function and would like PT/OT so that he does not lose function. 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 Patient relates that he would like physical therapy to work with him so that he does not regress. Objective - Vital Signs Vital Signs: Vital Signs Temp Pulse Resp BP Pulse Ox 08/06/16 23:50 97.6 F 86 14 123/74 96 08/06/16 19:52 97 08/06/16 18:50 98.8 F 94 16 130/73 97 08/06/16 15:26 99.1 F 97 16 135/91 97 08/06/16 10:47 98.5 F 95 18 119/82 98 08/06/16 07:30 98 08/06/16 06:39 98.2 F 100 18 128/71 93 Intake and Output 08/06/16 08/06/16 08/06/16 07:59 15:59 23:59 Intake Total 100 / 100 340 / 340 340 / 340 Output Total 1500 / 1500 900 / 900 850 / 850 Balance -1400 / -1400 -560 / -560 -510 / -510 Intake: IV Fluids 100 / 100 100 / 100 100 / 100 0.9 % Sodium Chloride 1, 0 / 0 000 ML @ 75 mls/hr IVC . [id number] [facility]UL[facility] Rx#: [id number] Doxycycline 100 MG In 0.9 100 / 100 % Sodium Chloride (Mini- Bag +) 100 ML @ 100 mls/ hr IVPB Q12HR [facility]UL[facility] Rx#: [id number] Ancef 1,000 MG In 100 / 100 100 / 100 Dextrose 5% (Minibag+) 100 ML 100 ML @ 200 mls/ hr IVPB Q8HR [facility] Rx#: [id number] Oral 240 / 240 240 / 240 Output: Urine 1500 / 1500 900 / 900 850 / 850 Other: Meal Lunch Dinner Percent of Meal Consumed 100% 100% Weight 72.1 kg Patient Weight 08/06/16 23:59 Weight 72.1 kg - Exam Exam: No new erythema and the sutures are intact. Mild bleeding drainage from the site. Mild edema. Patient is able to move ankle and remaining digits. Patient is awake, alert, and oriented X 3. - Lab Result Diagrams: 08/07/16 04:01 08/07/16 04:01 Labs: Abnormal lab results WBC 15.0 K/mcL (4.3-11.1) H 08/06/16 04:43 Monocytes # 1.5 K/mcL (0.0-1.3) H 08/05/16 03:24 PT 13.0 Seconds (9.4-12.1) H 08/04/16 16:28 Glucose 101 mg/dL (70-99) H 08/06/16 04:43 Albumin 3.3 g/dL (3.5-5.0) L 08/05/16 03:24 Globulin 3.9 g/dL (2.4-3.5) H 08/05/16 03:24 Albumin/Globulin Ratio 0.8 (1.1-2.2) L 08/05/16 03:24 Triglycerides 256 mg/dL (< 150) H 08/06/16 04:43 VLDL Cholesterol, Calc 51 mg/dL (< 31) H 08/06/16 04:43 HDL Cholesterol 26 mg/dL (40-59) L 08/06/16 04:43 Cholesterol/HDL Ratio 6.5 (0-4.9) H 08/06/16 04:43 - VTE Documentation of Mechanical Device: Intermittent pneumatic compression device Consult Discharge Plan - Plan Additional Instructions: Follow-up with primary care physician within the next 7 days. Follow-up with podiatry within the next 7 days. Complete 6 more days of doxycycline 100 mg twice a day. May use orthopedic boot as indicated by podiatry. Follow-up with physical therapy Referrals: NO,PCP [Primary Care Provider] - Prescriptions: Doxycycline 100 mg PO BID #12 capsule Oxycodone HCl/Acetaminophen [Percocet 10-325 mg Tablet] 1 each PO Q8H PRN #25 tablet PRN Reason: Pain
[2016-08-07] MEDS: 0.9 % Sodium Chloride 1,000 ML IVC SCH (00:08)
[2016-08-07 04:51] LABS: Basophils # 0.1 K/mcL (0.0-0.2); Basophils % 0.5 %; Eosinophils # 0.5 K/mcL (0.0-0.6); Eosinophils % 4.5 %; Hematocrit 39.3 % (37.5-50.1); Hemoglobin 13.4 g/dL (12.9-16.9); Immature Granulocytes % 0.3 % (0-4); Lymphocytes # 3.2 K/mcL (0.6-4.6); Lymphocytes % 27.7 %; Mean Corpuscular HGB Conc 34.1 g/dL (31.6-35.5); Mean Corpuscular Hemoglobin 30.2 pg (28.0-33.3); Mean Corpuscular Volume 88.7 fL (83.0-100.0); Monocytes # 1.5 K/mcL (0.0-1.3); Monocytes % 13.1 %; Neutrophils # 6.2 K/mcL (1.6-8.9); Platelet Count 245 K/mcL (140-400); Red Blood Count 4.43 M/mcL (4.19-5.50); Red Cell Distribution Width 12.6 % (11.5-14.5); Segmented Neutrophils % 53.9 %
[2016-08-07 05:03] LABS: BUN/Creatinine Ratio 10 (6-26); Blood Urea Nitrogen 8 mg/dL (8-26); Calcium 8.6 mg/dL (8.6-10.8); Carbon Dioxide 25 mEq/L (19-29); Chloride 105 mEq/L (98-109); Glucose 90 mg/dL (70-99); Osmolality,Calculated 284 (280-300); Potassium 4.4 mEq/L (3.5-4.5); Sodium 138 mEq/L (136-145); eGFR For African Americans > 60 (> 60); eGFR For Non-African Americans > 60 (> 60)
[2016-08-07] MEDS: Doxycycline 100 MG in 0.9 % Sodium Chloride Mini Bag 100 ML IVPB SCH ×2 (06:31→17:50)
--- NOTE | 2016-08-07 07:51 | Discharge Summary ---
Date of Encounter: 08/08/16 Time of Encounter: 07:46 - Discharge Diagnosis (1) Traumatic amputation toe Priority: Primary Status: Acute Comments: underwent amputation of the left 2nd toe, possible surrounding acute cellulitis Discharge was canceled on 08/07/2016 as the patient's erythema progressed To the ankle. Doxycycline was discontinued and vancomycin was started. Qualifiers: Encounter type: initial encounter Laterality: left Qualified Code(s): S98.132A - Complete traumatic amputation of one left lesser toe, initial encounter (2) Chest pain Priority: Secondary Status: Acute Comments: Likely related to anxiety normal EKG troponins negative Qualifiers: Chest pain type: other chest pain Qualified Code(s): R07.89 - Other chest pain; R07.8 - Other chest pain (3) Fracture of toe Priority: Secondary Status: Acute Qualifiers: Encounter type: initial encounter Toe: unspecified toe Fracture type: open Fracture alignment: displaced Laterality: left Qualified Code(s): S92.912B - Unspecified fracture of left toe(s), initial encounter for open fracture (4) Anxiety Priority: Secondary Status: Acute (5) History of brain surgery Priority: Secondary Status: Acute (6) Tobacco abuse Priority: Secondary Status: Acute - Discharge Medications Prescriptions: Doxycycline 100 mg PO BID #12 capsule Oxycodone HCl/Acetaminophen [Percocet 10-325 mg Tablet] 1 each PO Q8H PRN #25 tablet PRN Reason: Pain Home Medications: ALPRAZolam [Xanax 0.5 MG Tablet] 0.5 mg PO QAM 06/30/15 [History] Amitriptyline [Elavil] 75 mg PO HS 08/04/16 [History] Dextroamphetamine/Amphetamine [Dextroamp-Amphetamin 10 mg Tab] 10 mg PO 0900, 1200 08/04/16 [History] Divalproex (12 HR) [Depakote (12 HR)] 250 mg PO BID 08/04/16 [History] Melatonin 3 mg PO HS PRN 08/04/16 [History] Omeprazole [PriLOSEC] 20 mg PO BIDAC 08/04/16 [History] SUMAtriptan Succinate [Imitrex] 100 mg PO DAILY PRN 08/04/16 [History] levETIRAcetam [Levetiracetam] 1,000 mg PO BID 08/04/16 [History] Doxycycline 100 mg PO BID #12 capsule 08/07/16 [Rx] Oxycodone HCl/Acetaminophen [Percocet 10-325 mg Tablet] 1 each PO Q8H PRN #25 tablet 08/07/16 [Rx] Allergies/Adverse Reactions: Allergies Penicillins [PCN] Allergy (Verified 03/25/16 17:54) Rash venom-honey bee [bee venom (honey bee)] Allergy (Verified 03/25/16 17:54) See Comments "i have swelled up and i think i had a seziure as a kid" Date of admission: 08/05/16 17:30 Primary care physician: PCP NO - Patient Status Disposition: Home, Self-Care Condition: Good Overall status at discharge: patient is progressing back to baseline - Discharge Instructions Follow Up With: NO,PCP [Primary Care Provider] - Additional Instructions: Follow-up with primary care physician within the next 7 days. Follow-up with podiatry within the next 7 days. Complete 6 more days of doxycycline 100 mg twice a day. May use orthopedic boot as indicated by podiatry. Follow-up with physical therapy - Diet and Activity Activity: increase activity as tolerated Diet: regular diet Hospital course: Mr. Recinos is a 40 year old male with PMH previous brain surgeries and anxiety who presented to [facility] on 08/04/2016 after having 2 toes injured while mowing grass. He was placed in observation status with surgical debridement planned in the morning. Patient says he was mowing grass when he tripped and fell. The mower ran over foot. He complained of left foot pain, pain was sharp at times, radiates to entire left foot. X rays whowed that he lost a partial amputation of the left 2nd toe, underwent subsequent amputation of the same toe by Dr Ramirez on 08/05/16. The next day the patient was still complaining of excruciating pain and there was some mild erythema surrounding the toe despite being on Ancef. WBC remained HIgh at >15,000 for which he was started on IV doxycycline. Today the pain as decreased from 10/10 down to 6/10, was re-evaluated by Dr Hester per the patient's request. His WBC came down to 11.6, no fevers , erythema has decreased considerably ( area was marked ) Discharge was canceled on 08/07/2016 as the patient's erythema progressed To the ankle. Doxycycline was discontinued and vancomycin was started. Time spent discussing smoking cessation with patient: 3 to 10 minutes - Time Spent with Patient Total time spent providing and/or coordinating discharge services: Greater than 30 minutes (40 min) - Constitutional Vitals: Temp Pulse Resp BP Pulse Ox 97.7 F 78 16 113/70 95 08/07/16 04:08 08/07/16 04:08 08/07/16 04:08 08/07/16 04:08 08/07/16 04:08 General appearance: Present: A&O X 3, no acute distress - Head Head exam: Present: atraumatic, normocephalic - Eye Eye exam: Present: PERRL, conjuntiva pink, sclera anicteric Pupils: Present: PERRL - Neck Neck exam general surgery: Present: supple, trachea midline. Absent: lymphadenopathy - Respiratory Respiratory exam: Present: CTAB. Absent: accessory muscle use, rales, rhonchi, wheezes - Cardiovascular Cardiovascular exam: Present: RRR, +S1, +S2. Absent: diastolic murmur, gallop, rubs, systolic murmur - GI/Abdominal GI/Abdominal exam: Present: normal bowel sounds, soft, no peritoneal signs. Absent: distended, tenderness - Extremities Exam Extremities exam: Present: warm, radial pulses palpable and symetrical. Absent : calf tenderness, cyanotic, pedal edema - Neurological Exam Neurological exam: Present: CN II-XII intact, oriented X3, no focal deficits, facial droop (left ). Absent: pronater drift, speech deficit - Skin Skin exam: Present: dry. Absent: intact (left 2nd toe amputation wound healing properly without signs of infection . Nailbed of left greater toe severely injured) - VTE Documentation of Mechanical Device: Intermittent pneumatic compression device
[2016-08-07] MEDS: *HR* OxyCODONE Immed Rel 5 MG TABLET PO PRN ×2 (07:59→17:50)
[2016-08-07] MEDS: Divalproex (12 HR) 250 MG TABLET PO SCH ×2 (08:00→20:30)
[2016-08-07] MEDS: levETIRAcetam 250 MG TABLET PO SCH ×2 (08:00→20:30)
[2016-08-07] MEDS: (Dextroamphetamine/Amphetamine [Dextroamp-Amphetamin PO SCH ×2 (08:01→14:36)
[2016-08-07] MEDS: Nicotine 14 MG PATCH.TD24 TD SCH (08:01)
--- NOTE | 2016-08-07 08:07 | Physician Discharge Referral ---
Home Health/Hosp Referral Info Transfer to: Home Health Provider in Charge Post Discharge: PCP - Diagnosis (1) Traumatic amputation toe Status: Acute (2) Chest pain Status: Acute (3) Fracture of toe Status: Acute (4) Anxiety Status: Acute (5) History of brain surgery Status: Acute (6) Tobacco abuse Status: Acute - Respiratory Orders Smoking Cessation: Smoking cessation has been advised. For more information, call the [employer] Tobacco Quit Line at 2-075-JDRX-NOW. - Diet/Nutrition Diet/Nutrition Orders: Regular - Services Needed Following services are medically necessary services: Physical Therapy Home Care Orders: Follow-up with primary care physician within the next 7 days. Follow-up with podiatry within the next 7 days. Complete 6 more days of doxycycline 100 mg twice a day. May use orthopedic boot as indicated by podiatry. Follow-up with physical therapy - Transfer Medications Prescriptions: Doxycycline 100 mg PO BID #12 capsule Oxycodone HCl/Acetaminophen [Percocet 10-325 mg Tablet] 1 each PO Q8H PRN #25 tablet PRN Reason: Pain Home Medications: ALPRAZolam [Xanax 0.5 MG Tablet] 0.5 mg PO QAM 06/30/15 [History] Amitriptyline [Elavil] 75 mg PO HS 08/04/16 [History] Dextroamphetamine/Amphetamine [Dextroamp-Amphetamin 10 mg Tab] 10 mg PO 0900, 1200 08/04/16 [History] Divalproex (12 HR) [Depakote (12 HR)] 250 mg PO BID 08/04/16 [History] Melatonin 3 mg PO HS PRN 08/04/16 [History] Omeprazole [PriLOSEC] 20 mg PO BIDAC 08/04/16 [History] SUMAtriptan Succinate [Imitrex] 100 mg PO DAILY PRN 08/04/16 [History] levETIRAcetam [Levetiracetam] 1,000 mg PO BID 08/04/16 [History] Doxycycline 100 mg PO BID #12 capsule 08/07/16 [Rx] Oxycodone HCl/Acetaminophen [Percocet 10-325 mg Tablet] 1 each PO Q8H PRN #25 tablet 08/07/16 [Rx] Allergies/Adverse Reactions: Allergies Penicillins [PCN] Allergy (Verified 03/25/16 17:54) Rash venom-honey bee [bee venom (honey bee)] Allergy (Verified 03/25/16 17:54) See Comments "i have swelled up and i think i had a seziure as a kid" Certification: Further, I certify that my clinical findings support that this patient is homebound (i.e. absences from home require considerable and taxing effort and are for medical reasons or jain services or infrequently or short duration when for other reasons) because: Homebound Reason: Post-surgery restriction and or conditions limit ability to leave home Attestation: My signature below is to certify that this patient is under my care and that I, or nurse practitioner, or a physician's claims assistant working with me, has a face-to -face encounter with this patient.
--- NOTE | 2016-08-07 12:31 | Electrocardiograph Report ---
[place] [address] Test Date: 2016-08-05 Pat Name: Eric Recinos Department: 114 Room: [facility] Gender: M Printer Repair Technician: : [id number] Requested By: Rajan Miller Order Number: [id number] Reading MD: Kwaku Mary Measurements Intervals [place] Rate: 84 P: 55 NM: 149 QRS: 27 QRSD: 104 T: 54 QT: 334 QTc: 374 Interpretive Statements SINUS RHYTHM LOW QRS VOLTAGE IN PRECORDIAL LEADS Electronically Signed On 08-07-2016 12:29:17 EDT by Kwaku Mary
--- NOTE | 2016-08-07 12:31 | Electrocardiograph Report ---
[place] [address] Test Date: 2016-08-05 Pat Name: Eric Recinos Department: 114 Room: [facility] Gender: M Printer Assistant: : [id number] Requested By: Rajan Miller Order Number: [id number] Reading MD: Kwaku Mary Measurements Intervals [place] Rate: 81 P: 63 CA: 164 QRS: 53 QRSD: 109 T: 53 QT: 330 QTc: 367 Interpretive Statements SINUS RHYTHM WITH SINUS ARRHYTHMIA LOW QRS VOLTAGE IN PRECORDIAL LEADS Electronically Signed On 08-07-2016 12:29:06 EDT by Kwaku Mary
[2016-08-07] MEDS: *HR* HYDROmorphone (PF) 1 MG/ML SYRINGE IVP PRN ×2 (13:38→20:51)
[2016-08-07] MEDS ORDERED: Lidocaine -MPF 1% 5 ML AMPUL INFILT ONE (16:47)
[2016-08-07] MEDS ORDERED: Vancomycin 1,000 MG in D5% in Water 250 ML IVPB SCH (17:00)
[2016-08-07] MEDS: Vancomycin 1,000 MG in D5% in Water 250 ML IVPB SCH ×2 (18:12→20:33)
[2016-08-07] MEDS: Melatonin 3 MG TABLET PO PRN (20:50)
[2016-08-08] MEDS: 0.9 % Sodium Chloride 1,000 ML IVC SCH ×2 (01:31→16:26)
[2016-08-08] MEDS: Vancomycin 1,000 MG in D5% in Water 250 ML IVPB SCH ×2 (05:28→19:10)
[2016-08-08] MEDS: Doxycycline 100 MG in 0.9 % Sodium Chloride Mini Bag 100 ML IVPB SCH (05:50)
[2016-08-08 07:47] LABS: Basophils # 0.1 K/mcL (0.0-0.2); Basophils % 0.6 %; Eosinophils # 0.7 K/mcL (0.0-0.6); Eosinophils % 6.4 %; Hematocrit 40.4 % (37.5-50.1); Hemoglobin 13.8 g/dL (12.9-16.9); Immature Granulocytes % 0.3 % (0-4); Lymphocytes # 2.4 K/mcL (0.6-4.6); Lymphocytes % 23.8 %; Mean Corpuscular HGB Conc 34.2 g/dL (31.6-35.5); Mean Corpuscular Volume 87.8 fL (83.0-100.0); Mean Platelet Volume 9.7 fL (9.4-12.4); Monocytes # 1.3 K/mcL (0.0-1.3); Monocytes % 12.7 %; Neutrophils # 5.7 K/mcL (1.6-8.9); Platelet Count 271 K/mcL (140-400); Red Cell Distribution Width 12.4 % (11.5-14.5); Segmented Neutrophils % 56.2 %
[2016-08-08 07:57] LABS: BUN/Creatinine Ratio 14 (6-26); Blood Urea Nitrogen 11 mg/dL (8-26); Calcium 8.9 mg/dL (8.6-10.8); Carbon Dioxide 23 mEq/L (19-29); Chloride 106 mEq/L (98-109); Glucose 98 mg/dL (70-99); Osmolality,Calculated 285 (280-300); Potassium 4.2 mEq/L (3.5-4.5); Sodium 138 mEq/L (136-145); eGFR For African Americans > 60 (> 60); eGFR For Non-African Americans > 60 (> 60)
[2016-08-08] MEDS: (Dextroamphetamine/Amphetamine [Dextroamp-Amphetamin PO SCH ×2 (09:12→14:55)
[2016-08-08] MEDS: levETIRAcetam 250 MG TABLET PO SCH ×2 (09:14→21:14)
[2016-08-08] MEDS: Divalproex (12 HR) 250 MG TABLET PO SCH ×2 (09:14→21:14)
[2016-08-08] MEDS: *HR* OxyCODONE Immed Rel 5 MG TABLET PO PRN ×3 (09:15→23:46)
[2016-08-08] MEDS: Nicotine 14 MG PATCH.TD24 TD SCH (09:17)
[2016-08-08] MEDS: *HR* HYDROmorphone (PF) 1 MG/ML SYRINGE IVP PRN ×2 (11:15→19:12)
--- NOTE | 2016-08-08 13:53 | Internal Med Progress Note ---
Date of Encounter: 08/08/16 Time of Encounter: 13:51 - Assessment and plan (1) Traumatic amputation toe Current Visit: Yes Status: Acute Assessment and plan: underwent amputation of the left 2nd toe, surrounding acute cellulitis Discontinued ancef day 2, failed IV doxycycline Discharge was canceled on 08/07/2016 as the patient's erythema progressed To the ankle. Doxycycline was discontinued and vancomycin IV was started. High risk for worsening infection Follow up with Podiatry Qualifiers: Encounter type: initial encounter Laterality: left Qualified Code(s): S98.132A - Complete traumatic amputation of one left lesser toe, initial encounter (2) Chest pain Current Visit: Yes Status: Acute Assessment and plan: Likely related to anxiety normal EKG troponins negative Qualifiers: Chest pain type: other chest pain Qualified Code(s): R07.89 - Other chest pain; R07.8 - Other chest pain (3) Fracture of toe Current Visit: Yes Status: Acute Qualifiers: Encounter type: initial encounter Toe: unspecified toe Fracture type: open Fracture alignment: displaced Laterality: left Qualified Code(s): S92.912B - Unspecified fracture of left toe(s), initial encounter for open fracture (4) Anxiety Current Visit: Yes Status: Acute Assessment and plan: might be related to CP (5) History of brain surgery Current Visit: Yes Status: Acute Assessment and plan: continue seizure prophylaxis with Keppra and divalproex (6) Tobacco abuse Current Visit: Yes Status: Acute Assessment and plan: smoking cessation counseling, nicotine patch - Subjective Interval history: complains of pain over the left foot 8/10, says he has difficulty standing up, had CP on 08/06/2016 over the left side, pleuritic and dull at times, no CP today no SOB, no fever, no abdominal pain - Constitutional Vitals: Temp Pulse Resp BP Pulse Ox 98 F 87 16 121/76 96 08/08/16 07:00 08/08/16 07:00 08/08/16 07:00 08/08/16 07:00 08/08/16 09:25 General appearance: Present: A&O X 3, no acute distress - Head Head exam: Present: atraumatic, normocephalic - Eye Eye exam: Present: PERRL, conjuntiva pink, sclera anicteric Pupils: Present: PERRL - Neck Neck exam general surgery: Present: supple, trachea midline. Absent: lymphadenopathy - Respiratory Respiratory exam: Present: CTAB. Absent: accessory muscle use, rales, rhonchi, wheezes - Cardiovascular Cardiovascular exam: Present: RRR, +S1, +S2. Absent: diastolic murmur, gallop, rubs, systolic murmur - GI/Abdominal GI/Abdominal exam: Present: normal bowel sounds, soft, no peritoneal signs. Absent: distended, tenderness - Extremities Exam Extremities exam: Present: warm, radial pulses palpable and symetrical. Absent : calf tenderness, cyanotic, pedal edema - Neurological Exam Neurological exam: Present: CN II-XII intact, oriented X3, no focal deficits. Absent: pronater drift, facial droop, speech deficit - Skin Skin exam: Present: dry. Absent: intact (Area of erythema has improved, amputation wound appears clean on the left second toe, left greater toe has a large lesion that does not appear infected) Internal Medicine: Result - Labs CBC & Chem 7: 08/08/16 07:40 08/08/16 07:40 Labs: Short CBC 08/08/16 Range/Units 07:40 WBC 10.1 (4.3-11.1) K/mcL Hgb 13.8 (12.9-16.9) g/dL Hct 40.4 (37.5-50.1) % Plt Count 271 (140-400) K/mcL Neutrophils # 5.7 (1.6-8.9) K/mcL BMP 08/08/16 07:40 Sodium 138 Potassium 4.2 Chloride 106 Carbon Dioxide 23 BUN 11 Creatinine 0.78 Glucose 98 Calcium 8.9 - ABG Interpretation ABG results: PT/INR, D-dimer PT 13.0 Seconds (9.4-12.1) H 08/04/16 16:28 - VTE Documentation of Mechanical Device: Intermittent pneumatic compression device Consult Discharge Plan - Plan Additional Instructions: Follow-up with primary care physician within the next 7 days. Follow-up with podiatry within the next 7 days. Complete 6 more days of doxycycline 100 mg twice a day. May use orthopedic boot as indicated by podiatry. Follow-up with physical therapy Referrals: NO,PCP [Primary Care Provider] - Prescriptions: Doxycycline 100 mg PO BID #12 capsule Oxycodone HCl/Acetaminophen [Percocet 10-325 mg Tablet] 1 each PO Q8H PRN #25 tablet PRN Reason: Pain
--- NOTE | 2016-08-08 18:06 | Podiatry Progress Note ---
Date of Encounter: 08/08/16 Time of Encounter: 18:03 - Assessment and Plan (1) Open fracture Current Visit: Yes Status: Acute Assessment: #1 surgical wounds intact. No evidence of dehiscence. Sutures intact. Receding erythema dorsal aspect of left foot #2 patient healing uneventfully with dramatic response to intravenous antibiotics Plan: #1 follow-up x-rays today #2 redressed wounds today irrigate with saline and peroxide and reapply sterile dressing Adaptic 4 x 4's Kerlix #3 intravenous antibiotic therapy for a period of 3 weeks postoperatively. #4 Would convert to by mouth antibiotics/Bactrim DS after intravenous antibiotics therapy has been complete #5 closed post discharge follow up with Dr. Ramirez within 72 hours of discharge Subjective Principal diagnosis: status post toe amputation Interval history: Postop day #3 partial amputation of toe #1 #2 foot secondary to lawnmower injury. Recent development of increased erythema dorsal aspect of the foot patient's antibiotics adjusted by internal medicine with resolution of his erythema which has receded to #1#2 digits and dorsal forefoot. Patient states he has had no pain the last 24-48 hrs. as slept through the night without difficulty. Objective - Vital Signs Vital Signs: Vital Signs Temp Pulse Resp BP Pulse Ox 08/08/16 16:20 98.3 F 106 18 130/76 98 08/08/16 10:17 98 16 129/81 96 08/08/16 09:25 96 08/08/16 07:00 98 F 87 16 121/76 96 08/08/16 03:31 97.8 F 82 17 123/71 95 08/07/16 23:22 98.4 F 87 16 121/83 98 08/07/16 20:59 95 08/07/16 18:56 98.0 F 99 17 138/88 95 Intake and Output 08/08/16 08/08/16 08/08/16 07:59 15:59 23:59 Intake Total 250 / 250 1000 / 1000 Output Total 800 / 800 550 / 550 Balance 250 / 250 -800 / -800 450 / 450 Intake: IV Fluids 250 / 250 1000 / 1000 0.9 % Sodium Chloride 1, 1000 / 1000 000 ML @ 75 mls/hr IVC . [id number] [facility] Rx#: [id number] Vancocin 1,000 MG In 250 / 250 Dextrose 5% 250 ML @ 167 mls/hr IVPB Q12HR [facility] Rx# :[id number] Output: Urine 800 / 800 550 / 550 - Exam Exam: #1 suture line intact. No evidence of dehiscence. No purulent drainage no fluctuance no odor Incision: Present: healing, inflamed Capillary Refill: less than 3 seconds - Lab Result Diagrams: 08/08/16 07:40 08/08/16 07:40 Labs: Abnormal lab results Eosinophils # 0.7 K/mcL (0.0-0.6) H 08/08/16 07:40 PT 13.0 Seconds (9.4-12.1) H 08/04/16 16:28 Albumin 3.3 g/dL (3.5-5.0) L 08/05/16 03:24 Globulin 3.9 g/dL (2.4-3.5) H 08/05/16 03:24 Albumin/Globulin Ratio 0.8 (1.1-2.2) L 08/05/16 03:24 Triglycerides 256 mg/dL (< 150) H 08/06/16 04:43 VLDL Cholesterol, Calc 51 mg/dL (< 31) H 08/06/16 04:43 HDL Cholesterol 26 mg/dL (40-59) L 08/06/16 04:43 Cholesterol/HDL Ratio 6.5 (0-4.9) H 08/06/16 04:43 Noted WBC count has normalized but has not had any evidence of left shift. Patient presented with an elevated white count of 16.2 secondary to trauma the day of admission. - VTE Documentation of Mechanical Device: Intermittent pneumatic compression device Consult Discharge Plan - Plan Additional Instructions: Follow-up with primary care physician within the next 7 days. Follow-up with podiatry within the next 7 days. Complete 6 more days of doxycycline 100 mg twice a day. May use orthopedic boot as indicated by podiatry. Follow-up with physical therapy Referrals: NO,PCP [Primary Care Provider] - Prescriptions: Doxycycline 100 mg PO BID #12 capsule Oxycodone HCl/Acetaminophen [Percocet 10-325 mg Tablet] 1 each PO Q8H PRN #25 tablet PRN Reason: Pain
[2016-08-08] MEDS: Melatonin 3 MG TABLET PO PRN (21:17)
[2016-08-09 05:23] LABS: Hematocrit 37.2 % (37.5-50.1); Hemoglobin 12.5 g/dL (12.9-16.9); Mean Corpuscular HGB Conc 33.6 g/dL (31.6-35.5); Mean Corpuscular Hemoglobin 29.4 pg (28.0-33.3); Mean Corpuscular Volume 87.5 fL (83.0-100.0); Mean Platelet Volume 9.7 fL (9.4-12.4); Platelet Count 265 K/mcL (140-400); Red Blood Count 4.25 M/mcL (4.19-5.50); Red Cell Distribution Width 12.3 % (11.5-14.5)
[2016-08-09 05:37] LABS: BUN/Creatinine Ratio 13 (6-26); Blood Urea Nitrogen 10 mg/dL (8-26); Calcium 8.4 mg/dL (8.6-10.8); Carbon Dioxide 25 mEq/L (19-29); Chloride 104 mEq/L (98-109); Glucose 93 mg/dL (70-99); Osmolality,Calculated 281 (280-300); Potassium 4.2 mEq/L (3.5-4.5); Sodium 136 mEq/L (136-145); eGFR For African Americans > 60 (> 60); eGFR For Non-African Americans > 60 (> 60)
[2016-08-09] MEDS: Vancomycin 1,250 MG in D5% in Water 250 ML IVPB SCH ×2 (06:17→18:07)
[2016-08-09] MEDS: *HR* OxyCODONE Immed Rel 5 MG TABLET PO PRN ×3 (07:18→20:59)
[2016-08-09] MEDS: Divalproex (12 HR) 250 MG TABLET PO SCH (08:46)
[2016-08-09] MEDS: levETIRAcetam 250 MG TABLET PO SCH (08:46)
[2016-08-09] MEDS: Nicotine 14 MG PATCH.TD24 TD SCH (08:46)
[2016-08-09] MEDS: (Dextroamphetamine/Amphetamine [Dextroamp-Amphetamin PO SCH ×2 (08:48→13:11)
[2016-08-09] MEDS: 0.9 % Sodium Chloride 1,000 ML IVC SCH (08:48)
[2016-08-09 13:53] LABS: Hematocrit 39.8 % (37.5-50.1); Hemoglobin 13.5 g/dL (12.9-16.9); Mean Corpuscular HGB Conc 33.9 g/dL (31.6-35.5); Mean Corpuscular Hemoglobin 29.6 pg (28.0-33.3); Mean Corpuscular Volume 87.3 fL (83.0-100.0); Mean Platelet Volume 9.6 fL (9.4-12.4); Platelet Count 308 K/mcL (140-400); Red Blood Count 4.56 M/mcL (4.19-5.50); Red Cell Distribution Width 12.3 % (11.5-14.5)
[2016-08-09 14:51] VITALS: BP 123/74
--- NOTE | 2016-08-09 15:07 | Internal Med Progress Note ---
Date of Encounter: 08/09/16 Time of Encounter: 15:08 - Assessment and plan (1) Traumatic amputation toe Current Visit: Yes Status: Acute Assessment and plan: Continue vancomycin IV for 3 weeks but podiatric recommendations. Follow up with infectious disease and podiatry. Qualifiers: Encounter type: initial encounter Laterality: left Qualified Code(s): S98.132A - Complete traumatic amputation of one left lesser toe, initial encounter (2) Fracture of toe Current Visit: Yes Status: Acute Assessment and plan: Status post amputation of first and second toes Qualifiers: Encounter type: initial encounter Toe: unspecified toe Fracture type: open Fracture alignment: displaced Laterality: left Qualified Code(s): S92.912B - Unspecified fracture of left toe(s), initial encounter for open fracture (3) Anxiety Current Visit: Yes Status: Acute Assessment and plan: Improved symptoms. Continue home medications. (4) History of brain surgery Current Visit: Yes Status: Acute (5) Chest pain Current Visit: Yes Status: Acute Assessment and plan: Anxiety related pain. Negative troponins. Qualifiers: Chest pain type: other chest pain Qualified Code(s): R07.89 - Other chest pain; R07.8 - Other chest pain (6) Tobacco abuse Current Visit: Yes Status: Acute - Subjective Interval history: Patient is feeling much better today. Tenderness and swelling and pain in his left foot are improving. - Constitutional Vitals: Temp Pulse Resp BP Pulse Ox 98.5 F 107 18 123/74 96 08/09/16 14:50 08/09/16 14:50 08/09/16 14:50 08/09/16 14:50 08/09/16 14:50 General appearance: Present: cooperative, A&O X 3, no acute distress, answers questions appropriately - Respiratory Respiratory exam: Present: CTAB. Absent: accessory muscle use, rales, rhonchi, wheezes - Cardiovascular Cardiovascular exam: Present: RRR, +S1, +S2. Absent: diastolic murmur, gallop, rubs, systolic murmur - Extremities Exam Extremities exam: Present: warm, radial pulses palpable and symetrical. Absent : calf tenderness, cyanotic, pedal edema Additional comments: Erythema and redness in left lower extremity improving. - Neurological Exam Neurological exam: Present: alert, oriented X3, no focal deficits. Absent: facial droop, speech deficit Internal Medicine: Result - Labs CBC & Chem 7: 08/09/16 13:44 08/09/16 04:55 Labs: Short CBC 08/09/16 08/09/16 Range/Units 04:55 13:44 WBC 13.5 H 10.6 (4.3-11.1) K/mcL Hgb 12.5 L 13.5 (12.9-16.9) g/dL Hct 37.2 L 39.8 (37.5-50.1) % Plt Count 265 308 (140-400) K/mcL BMP 08/09/16 04:55 Sodium 136 Potassium 4.2 Chloride 104 Carbon Dioxide 25 BUN 10 Creatinine 0.76 Glucose 93 Calcium 8.4 L - ABG Interpretation ABG results: PT/INR, D-dimer PT 13.0 Seconds (9.4-12.1) H 08/04/16 16:28 - Impressions Impressions Foot X-Ray 08/08/16 18:01 IMPRESSION: Stable postoperative changes following recent partial 1st and 2nd digit amputation. No evident complication. D/ / Vasu Guillermo MD / Vasu Guillermo MD Interpreting Provider: Vasu Guillermo MD - VTE Documentation of Mechanical Device: Intermittent pneumatic compression device Consult Discharge Plan - Plan Additional Instructions: Follow-up with primary care physician within the next 7 days. Follow-up with podiatry within the next 7 days. Complete 6 more days of doxycycline 100 mg twice a day. May use orthopedic boot as indicated by podiatry. Follow-up with physical therapy Referrals: NO,PCP [Primary Care Provider] - Prescriptions: Oxycodone HCl/Acetaminophen [Percocet 10-325 mg Tablet] 1 each PO Q8H PRN #25 tablet PRN Reason: Pain Vancomycin/0.9 % Sod Chloride [Vanco 1.5 gm/500 ml-0.9% NaCl] 1.5 gm IV BID #42 plast..bag - Attending Attestation This document has been at least partially created by [employer] recognition technology by Dr. Sher. Errors in grammar, wording or other phrases may exist. If errors are found after the documentation is signed, they will be addressed individually in the addendum section of this document when appropriate.
--- NOTE | 2016-08-09 15:15 | Physician Discharge Referral ---
Home Health/Hosp Referral Info Transfer to: Home Health - Diagnosis (1) Traumatic amputation toe Priority: Primary Status: Acute (2) Fracture of toe Priority: Secondary Status: Acute (3) Anxiety Priority: Secondary Status: Acute (4) History of brain surgery Priority: Secondary Status: Acute (5) Chest pain Priority: Secondary Status: Acute (6) Tobacco abuse Priority: Secondary Status: Acute - Respiratory Orders Smoking Cessation: Smoking cessation has been advised. For more information, call the [place] Tobacco Quit Line at 0-427-HMZD-NOW. - Diet/Nutrition Diet/Nutrition Orders: Regular - Activity Activity Orders: Ambulate (with cane) - Services Needed Following services are medically necessary services: Nursing, Physical Therapy, Occupational Therapy, Home Infusion Home Care Orders: Please get CBC, vancomycin level on 08/11/16 and every Monday thereafter while patient is receiving IV vancomycin - Transfer Medications Prescriptions: Oxycodone HCl/Acetaminophen [Percocet 10-325 mg Tablet] 1 each PO Q8H PRN #25 tablet PRN Reason: Pain Vancomycin/0.9 % Sod Chloride [Vanco 1.5 gm/500 ml-0.9% NaCl] 1.5 gm IV BID #42 plast..bag Home Medications: ALPRAZolam [Xanax 0.5 MG Tablet] 0.5 mg PO QAM 06/30/15 [History] Amitriptyline [Elavil] 75 mg PO HS 08/04/16 [History] Dextroamphetamine/Amphetamine [Dextroamp-Amphetamin 10 mg Tab] 10 mg PO 0900, 1200 08/04/16 [History] Divalproex (12 HR) [Depakote (12 HR)] 250 mg PO BID 08/04/16 [History] Melatonin 3 mg PO HS PRN 08/04/16 [History] Omeprazole [PriLOSEC] 20 mg PO BIDAC 08/04/16 [History] SUMAtriptan Succinate [Imitrex] 100 mg PO DAILY PRN 08/04/16 [History] levETIRAcetam [Levetiracetam] 1,000 mg PO BID 08/04/16 [History] Oxycodone HCl/Acetaminophen [Percocet 10-325 mg Tablet] 1 each PO Q8H PRN #25 tablet 08/07/16 [Rx] Vancomycin/0.9 % Sod Chloride [Vanco 1.5 gm/500 ml-0.9% NaCl] 1.5 gm IV BID #42 plast..bag 08/09/16 [Rx] Allergies/Adverse Reactions: Allergies Penicillins [PCN] Allergy (Verified 03/25/16 17:54) Rash venom-honey bee [bee venom (honey bee)] Allergy (Verified 03/25/16 17:54) See Comments "i have swelled up and i think i had a seziure as a kid" Certification: Further, I certify that my clinical findings support that this patient is homebound (i.e. absences from home require considerable and taxing effort and are for medical reasons or protestant services or infrequently or short duration when for other reasons) because: Homebound Reason: Patient requires assistance of a person or device to safely leave home Attestation: My signature below is to certify that this patient is under my care and that I, or nurse practitioner, or a physician's fundraising assistant working with me, has a face-to -face encounter with this patient.
--- NOTE | 2016-08-09 15:21 | Podiatry Progress Note ---
Date of Encounter: 08/09/16 Time of Encounter: 12:00 - Assessment and Plan (1) Traumatic amputation toe Status: Acute Dressing changed at bedside Cleansed with saline, painted with betadine, adaptic, 4x4 and kerlex applied Slight increase in WBC noted today, foot is unlikely cause Patient to go home with 3 weeks IV antibiotic therapy, powerglide in place and SW working with home health Patient to leave dressing in place upon discharge, will follow up in clinic in 48-72 hours after discharge Patient to call with any fevers, chills, n/v or flu like symptoms Protective weight bearing with post op shoe Qualifiers: Encounter type: initial encounter Laterality: left Qualified Code(s): S98.132A - Complete traumatic amputation of one left lesser toe, initial encounter Subjective Principal diagnosis: status post toe amputation Interval history: Partial amputation of left foot toe #1 and #2 per trauma with surgical intervention per on 08/05 Presented with cellulitis and trauma of LLE receding erythema and edema noted Patient states pain has decreased but remains at level of 4/10 with ambulation Sutures intact - slight scabbing noted to suture area 08/08 repeat Xrays unremarkable Patient denies any fevers, chills, n/v or flu like symptoms Denies any calf pain Dressing intact on arrival with post op shoe. Objective - Vital Signs Vital Signs: Vital Signs Temp Pulse Resp BP Pulse Ox 08/09/16 14:50 98.5 F 107 18 123/74 96 08/09/16 10:44 98.3 F 90 20 121/78 99 08/09/16 07:14 98 08/09/16 07:08 98.0 F 91 18 110/75 98 08/09/16 00:03 97.6 F 86 16 103/69 100 08/08/16 20:12 98.2 F 90 16 136/87 97 08/08/16 16:20 98.3 F 106 18 130/76 98 Intake and Output 08/08/16 08/09/16 08/09/16 23:59 07:59 15:59 Intake Total 1000 / 1000 1250 / 1250 610 / 610 Output Total 550 / 550 700 / 700 Balance 450 / 450 1250 / 1250 -90 / -90 Intake: IV Fluids 1000 / 1000 1250 / 1250 250 / 250 0.9 % Sodium Chloride 1, 1000 / 1000 1000 / 1000 000 ML @ 75 mls/hr IVC . [id number] [facility] Rx#: [id number] Vancocin 1,000 MG In 250 / 250 Dextrose 5% 250 ML @ 167 mls/hr IVPB Q12HR [facility] Rx# :[id number] Vancocin 1,250 MG In 250 / 250 Dextrose 5% 250 ML @ 166. 67 mls/hr IVPB Q12H [facility] Rx#:[id number] Oral 360 / 360 Output: Urine 550 / 550 700 / 700 Other: Meal Breakfast Percent of Meal Consumed 100% - Exam Exam: Dressings removed Suture line intact, no signs of dehiscence Placed patient in trend position, erythema markedly decreased with elevation, not probable that foot is cause of WBC increase today Mild warmth, edema and erythema remains No drainage to incision line Mild pain with palpation Pulses palpable DP/PT Sensation intact Movement intact without rigidity Cap refill < 3 seconds No calf pain with manual compression - Lab Result Diagrams: 08/09/16 13:44 08/09/16 04:55 Labs: Abnormal lab results Eosinophils # 0.7 K/mcL (0.0-0.6) H 08/08/16 07:40 PT 13.0 Seconds (9.4-12.1) H 08/04/16 16:28 Calcium 8.4 mg/dL (8.6-10.8) L 08/09/16 04:55 Albumin 3.3 g/dL (3.5-5.0) L 08/05/16 03:24 Globulin 3.9 g/dL (2.4-3.5) H 08/05/16 03:24 Albumin/Globulin Ratio 0.8 (1.1-2.2) L 08/05/16 03:24 Triglycerides 256 mg/dL (< 150) H 08/06/16 04:43 VLDL Cholesterol, Calc 51 mg/dL (< 31) H 08/06/16 04:43 HDL Cholesterol 26 mg/dL (40-59) L 08/06/16 04:43 Cholesterol/HDL Ratio 6.5 (0-4.9) H 08/06/16 04:43 Vancomycin Trough 6.8 mcg/mL (10-20) L 08/09/16 04:55 - VTE Documentation of Mechanical Device: Intermittent pneumatic compression device Consult Discharge Plan - Plan Instructions: Oxycodone/Acetaminophen (By mouth), Vancomycin/Dextrose Premix ( Injection), Toe Amputation (DC) Additional Instructions: Follow-up with primary care physician within the next 7 days. Follow-up with podiatry within the next 7 days. Complete 6 more days of doxycycline 100 mg twice a day. May use orthopedic boot as indicated by podiatry. Follow-up with physical therapy Referrals: NO,PCP [Primary Care Provider] - Prescriptions: Oxycodone HCl/Acetaminophen [Percocet 10-325 mg Tablet] 1 each PO Q8H PRN #25 tablet PRN Reason: Pain Vancomycin/0.9 % Sod Chloride [Vanco 1.5 gm/500 ml-0.9% NaCl] 1.5 gm IV BID #42 plast..bag
[2016-08-09] MEDS: *HR* HYDROmorphone (PF) 1 MG/ML SYRINGE IVP PRN (18:12)
[2016-08-09] MEDS ORDERED: Aminoglycoside Consult 1 EACH MC ONE (21:04)
== END 2016-08-09 21:05 | disposition home or self-care (01) | DRG 905 ==
LOC: EMEROO 15:18 → 3NENU 15:18 → SUATTDRO 08-05 17:30
PROVIDERS: ADMIT Internal Medicine; ATTEND Internal Medicine